=== PATIENT | female | born 1960 | race Caucasian/White ===

== ENCOUNTER 2022-09-17 10:44 | Emergency (ER) | payer OTHER ==
--- NOTE | 2022-09-17 10:57 | ED Physician Documentation ---
PD HPI ABD PAIN - Stated complaint Stated Complaint: RT SIDE PX - Chief complaint Chief Complaint: Abd Pain - History obtained from History obtained from: Patient - History of Present Illness Timing - onset: How many days ago (2) Timing - duration: Days (2) Timing - details: Abrupt onset, Still present Quality: Aching, Sharp, Pain Location: RUQ Radiation: Chest (right lower anterior axillary line to lateral clavicular area.), Right flank Improved by: Position (lying to left side). No: Vomiting Worsened by: Moving, Position (lying on back and right) Associated symptoms: Nausea, Vomiting. No: Fever, Diarrhea, Constipation, Chest pain, Near syncope / syncope Similar symptoms before: Has not had sx before Recently seen: Not recently seen Review of Systems Constitutional: reports: Fatigue. denies: Fever, Chills, Myalgias Nose: denies: Rhinorrhea / runny nose, Congestion Throat: denies: Sore throat Respiratory: denies: Cough PD PAST MEDICAL HISTORY - Past Medical History Cardiovascular: None Respiratory: None Endocrine/Autoimmune: HyPOthyroidism GI: None : None HEENT: None Psych: None Musculoskeletal: None Derm: None - Past Surgical History Ortho: Hip replacement, Shoulder arthroplasty - Present Medications Home Medications: Ambulatory Orders Medication Instructions Recorded Confirmed B12/Levomefolate Calcium/B-6 1 each PO DAILY 05/06/16 05/07/16 [Foltx Tablet] Cholecalciferol (Vitamin D3) 1,000 unit PO DAILY 05/06/16 05/07/16 [Vitamin D3] Levothyroxine [Synthroid] 25 mcg ORAL DAILY 05/06/16 05/06/16 [place]-3/Dha/Epa/Fish Oil [[place] 3 2 each PO DAILY 05/06/16 05/07/16 500 Softgel] HYDROcod/ACETAM 5/325 [[place] 5/325] 1 ea PO Q6H PRN #15 tablet 09/17/22 Naproxen 500 mg PO BID #20 tab 09/17/22 - Allergies Allergies/Adverse Reactions: Allergies Allergy/AdvReac Type Severity Reaction Status Date / Time No Known Drug Allergies Allergy Verified 09/17/22 10:55 - Social History Does the pt smoke?: No - Family History Family history: denies: Venous thromboembolism PD ED PE NORMAL - Vitals Vital signs reviewed: Yes - General General: Alert and oriented X 3, Well developed/nourished, Other (appears very uncomfortable. ) - Neck Neck: Supple, no meningeal sign, No adenopathy - Cardiac Cardiac: RRR, No murmur - Respiratory Respiratory: No respiratory distress (somewhat shallower breaths as deeper causes pain right lower costal margin and ruq abd. ), Clear bilaterally - Abdomen Abdomen: Normal bowel sounds, Soft, Non distended, No organomegaly, Other (tender ruQ with local guarding but no percussion nor rebound tenderness. Some tender on lower costal margin as well. no rash nor redness. ) - Derm Derm: Normal color, Warm and dry, No rash - Extremities Extremities: Normal ROM s pain, No edema, No calf tenderness / cord - Neuro Neuro: No motor deficit, No sensory deficit Results - Vitals Vitals: Vital Signs - 24 hr 09/17/22 09/17/22 09/17/22 10:51 11:13 13:26 Temperature 36.9 C Heart Rate 94 92 79 Respiratory 17 18 18 Rate Blood Pressure 146/88 H 157/96 H 151/91 H O2 Saturation 94 94 96 09/17/22 14:27 Temperature Heart Rate 75 Respiratory 18 Rate Blood Pressure 139/79 H O2 Saturation 96 Oxygen O2 Source Room air - Labs Labs: Laboratory Tests 09/17/22 09/17/22 09/17/22 11:30 11:30 11:31 WBC 11.0 H RBC 4.94 Hgb 14.2 Hct 43.5 MCV 88.1 MCH 28.7 MCHC 32.6 RDW 13.2 Plt Count 289 MPV 9.8 Neut # (Auto) 8.0 H Lymph # (Auto) 1.8 [place] # (Auto) 1.2 H Eos # (Auto) 0.0 Baso # (Auto) 0.0 Absolute Nucleated RBC 0.00 Nucleated RBC % 0.0 Sodium 137 Potassium 3.9 Chloride 101 Carbon Dioxide 27 Anion Gap 9.0 BUN 14 Creatinine 0.9 Estimated GFR (MDRD) 64 L Glucose 120 H Calcium 9.0 Total Bilirubin 1.7 H AST 17 ALT 16 Alkaline Phosphatase 65 Total Protein 7.6 Albumin 3.9 Globulin 3.7 Albumin/Globulin Ratio 1.1 Lipase 25 Urine Color YELLOW Urine Clarity CLEAR Urine pH 6.0 Ur Specific [place] 1.015 Urine Protein TRACE Urine Glucose (UA) NEGATIVE Urine Ketones NEGATIVE Urine Occult Blood TRACE-INTA Urine Nitrite NEGATIVE Urine Bilirubin NEGATIVE Urine Urobilinogen 0.2 (NORMAL) Ur Leukocyte Esterase NEGATIVE Ur Microscopic Review NOT INDICATED Urine Culture Comments NOT INDICATED - Rads (name of study) abd/pelvis CT Relevant Findings:: Prelim report reviewed, EMP independent interpretation of test (no intra-abdominal findings acute. normal gallbladder/pancreas/liver. kidney without swelling. there is some atelectatic changes right low base. ), See rad report PD Medical Decision Making - ED course Complexity details: reviewed results (no conclusive findings on the ct abd/pel vis. normal gb/pancreas/kidney, which were my highest ranked likely problems. there is some atelectatic changes lower right lung, but no cough/fevers/dyspnea, so presume more from splinted breathing than pneumonia. Low risk scoring for PE and low clinical.), re-evaluated patient (The patient was given IV Toradol 15 mg. She did have considerable improvement in her pain and is fairly comfortable though not completely resolved with that.), considered differential (RUQ pain that sounds like gallbladder, but also consider pancreatic, lower lung, costochondral. ), d/w patient Drug Therapy Requiring Monitoring for Toxicity: given just toradol for pain and had really good improvement to almost no pain on recheck. Departure - Departure Disposition: 01 Home, Self Care Clinical Impression: Right upper quadrant abdominal pain Condition: Stable Record reviewed to determine appropriate education?: Yes Instructions: ED Abdominal Pain Female Non-Specific Abdominal Pain Prescriptions: Naproxen 500 mg PO BID #20 tab HYDROcod/ACETAM 5/325 [[place] 5/325] 1 ea PO Q6H PRN #15 tablet PRN Reason: Pain Comments: Its unclear the cause of your pain. It seems to be right upper abdomen versus right lower chest wall or lung. Your blood tests looking at pancreas and liver are normal. Your basic blood count and chemistry panel is normal as well. The CT scan showed no obvious acute abnormality that would be causing the pain. Pancreas liver and gallbladder are normal. The kidney does not have any swelling. They do see the a small amount of consolidation (shrinkage) of the lower lung on the right and that can cause some inflammation and discomfort. However being most likely that this was the result of not taking good breaths because of the pain and therefore not full expansion of the lung rather than the cause of pain itself. No signs of pneumonia per se nor fluid around the lungs and no tumors or masses. At this point we would treat with some anti-inflammatories and add pain medicine if needed presuming potential muscular pain versus a nerve irritation or inflammation around the lung (pleurisy). I wrote for some naproxen 500 mg twice daily with food. To that add Tylenol every 4-6 hours if needed for pain or hydrocodone/acetaminophen if needed for worse pain. I sent your prescriptions to the [facility] pharmacy. At this point I would anticipate improvement over the next few days with the above medications. Activity as tolerated. Recheck if not improving well over the next several days. Recheck or return if you have other symptoms develop that could elucidate a different cause such as fever/cough, skin rash or irritation (such as shingles), pain with eating, other concerns. I am prescribing a short course of narcotic pain medication for you. These are potentially dangerous and addictive medications that should be used carefully. These medications may constipate you. Take an [id number] stool softener such as docusate twice daily with plenty of water while taking these medications. If you go 24 hours without a bowel movement, take [id number] MiraLAX, per package instructions. Do not drink or drive while taking these medications. If you received narcotic or sedating medications while in the emergency department do not drive for 24 hours. Store this medication in a safe, secure place and out of reach of children. It is a violation of federal law to give or sell this medication to another person or to use in a manner other than prescribed. The ED will not refill narcotic prescriptions, including prescriptions lost or stolen. You can dispose of unwanted medications at the [facility]'s office or at several pharmacies such as [email or web address]. Discharge Date/Time: 09/17/22 14:29
[2022-09-17] MEDS ORDERED: KETOROLAC 15 MG/ML VIAL IVP STA (11:16)
[2022-09-17 11:35] LABS: BILIRUBIN,URINE NEGATIVE (NEGATIVE); GLUCOSE, URINE (UA) NEGATIVE (NEGATIVE); KETONES,URINE (UA) NEGATIVE (NEGATIVE); LEUKOCYTE ESTERASE, URINE NEGATIVE (NEGATIVE); NITRITE,URINE NEGATIVE (NEGATIVE); OCCULT BLOOD,URINE TRACE-INTA (NEGATIVE); PROTEIN,URINE TRACE mg/dL (NEGATIVE); UROBILINOGEN,URINE 0.2 (NORMAL) E.U./dL (NORMAL)
[2022-09-17 11:36] LABS: CLARITY,URINE CLEAR (CLEAR)
[2022-09-17 11:39] LABS: BASOPHILS % (AUTO) 0.4 %; EOSINOPHILS % (AUTO) 0.2 %; HCT - HEMATOCRIT 43.5 % (37.0-47.0); HGB - HEMOGLOBIN 14.2 g/dL (12.0-16.0); LYMPHOCYTES # (AUTO) 1.8 10^3/uL (1.5-3.5); LYMPHOCYTES % (AUTO) 16.1 %; MEAN CORPUSCULAR HEMOGLOBIN 28.7 pg (27.0-31.0); MEAN CORPUSCULAR HGB CONC 32.6 g/dL (32.0-36.0); MEAN CORPUSCULAR VOLUME 88.1 fL (81.0-99.0); MEAN PLATELET VOLUME 9.8 fL (7.9-10.8); MONOCYTES # (AUTO) 1.2 10^3/uL (0.0-1.0); PLT - PLATELET COUNT 289 10^3/uL (130-450); RED BLOOD COUNT 4.94 10^6/uL (4.20-5.40); RED CELL DISTRIBUTION WIDTH 13.2 % (12.0-15.0)
[2022-09-17 11:49] LABS: ALBUMIN 3.9 g/dL (3.2-5.5); ALBUMIN/GLOBULIN RATIO 1.1 (1.0-2.2); BILIRUBIN,TOTAL 1.7 mg/dL (0.2-1.0); CREATININE 0.9 mg/dL (0.4-1.0); POTASSIUM 3.9 mmol/L (3.5-5.0); TOTAL PROTEIN 7.6 g/dL (6.7-8.2)
[2022-09-17] MEDS ORDERED: iohexoL-300 100 ML VIAL ONE (11:55)
--- NOTE | 2022-09-17 13:52 | CT Report ---
PROCEDURE: ABDOMEN/PELVIS W INDICATIONS: LLQ Abdominal pain, diverticulitis suspected CONTRAST: 100ml Omnipaque 300 TECHNIQUE: After the administration of IV contrast, 5 mm thick sections acquired from the diaphragms to the symp hysis. 5 mm thick coronal and sagittal reformats were acquired. For radiation dose reduction, the f ollowing was used: automated exposure control, adjustment of mA and/or kV according to patient size. COMPARISON: None FINDINGS: Image quality: There is limited visualization of the pelvis secondary to artifact from hip arthropla sty. ABDOMEN: Lung bases: Right base consolidation is present. Solid organs: Liver and spleen are normal in size and enhancement. Gallbladder Biliary system is no n dilated. Pancreas enhances normally. No adrenal nodules. Kidneys demonstrate normal size and enh ancement, without hydronephrosis. Peritoneum and bowel: Bowel loops demonstrate normal wall thickness and caliber. No free fluid or a ir. Nodes and vessels: No retroperitoneal or mesenteric adenopathy by size criteria. Aorta and inferior vena cava are normal in size. Miscellaneous: Fat-containing ventral hernia. PELVIS: Genitourinary: Bladder wall thickness is normal. Miscellaneous: No inguinal hernias or adenopathy. Bones: No suspicious bony lesions. No vertebral body compression fractures. IMPRESSION: Right base consolidation. Lungs could represent atelectasis, developing pneumonia cannot be excluded. No acute intra-abdominal or pelvic process. Reviewed by: Renetta Munoz MD on 09/17/2022 1:51 PM PST Approved by: Renetta Munoz MD on 09/17/2022 1:51 PM PST Station ID: [id number]
[2022-09-17 14:29] VITALS: BP 139/79
[2022-09-17] MEDS ORDERED: iohexoL-300 100 ML VIAL IVP ONE (14:30)
== END 2022-09-17 14:29 | disposition home or self-care (01) ==
LOC: ED 10:44
DX: R10.11 Right upper quadrant pain (principal); E03.9 Hypothyroidism, unspecified; Z79.899 Other long term (current) drug therapy
CPT/HCPCS: 36415; 74177; 80053; 81003; 83690; 85025; 96374; 99284; Q9967; 81001; 87086